=== PATIENT | male | born 1950 | race Caucasian/White ===

== ENCOUNTER 2019-05-30 22:39 | Outpatient (CLI) | payer SELFPAY | END 2019-05-30 22:40 | disposition critical access hospital (66) | LOC: EMS 22:39 | PROVIDERS: ATTEND Surgery | DX: T24.012A Burn of unspecified degree of left thigh, initial encounter (principal); W40.1XXA Explosion of explosive gases, initial encounter; Y92.89 Other specified places as the place of occurrence of the external cause | CPT/HCPCS: A0425; A0429 ==

== ENCOUNTER 2019-05-31 00:03 | Emergency (ER) | payer SELFPAY ==
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
[2019-05-31] MEDS ORDERED: SODIUM CHLORIDE 0.9% 1,000 ML IV ONE ×2 (00:44→02:48)
[2019-05-31] MEDS ORDERED: ceFAZolin 1 GM in SODIUM CHLORIDE 0.9% MINIBAG 100 ML IV STA (00:45)
[2019-05-31] MEDS ORDERED: KETOROLAC 15 MG/ML VIAL IVP STA (00:45)
[2019-05-31] MEDS ORDERED: HYDROmorphone 2 MG/ML VIAL IVP STA (00:45)
[2019-05-31] MEDS ORDERED: FAMOTIDINE 20 MG/2 ML VIAL IVP STA (00:45)
[2019-05-31] MEDS ORDERED: LIDOCAINE JELLY 2% 5 ML TUBE TOP STA (00:48)
[2019-05-31 01:03] LABS: BASOPHILS % (AUTO) 0.4 %; EOSINOPHILS # (AUTO) 0.1 10^3/uL (0.0-0.7); LYMPHOCYTES # (AUTO) 0.8 10^3/uL (1.5-3.5); LYMPHOCYTES % (AUTO) 9.3 %; MEAN CORPUSCULAR HEMOGLOBIN 27.9 pg (27.0-31.0); MEAN CORPUSCULAR HGB CONC 32.7 g/dL (32.0-36.0); MEAN CORPUSCULAR VOLUME 85.4 fL (80.0-94.0); MONOCYTES # (AUTO) 0.8 10^3/uL (0.0-1.0); NEUTROPHILS # (AUTO) 7.2 10^3/uL (1.5-6.6); NEUTROPHILS % (AUTO) 79.7 %; PLT - PLATELET COUNT 216 10^3/uL (130-450); RED BLOOD COUNT 5.01 10^6/uL (4.70-6.10); RED CELL DISTRIBUTION WIDTH 13.2 % (12.0-15.0)
[2019-05-31 01:16] LABS: ALBUMIN 3.1 g/dL (3.2-5.5); BILIRUBIN,TOTAL 0.8 mg/dL (0.2-1.0); CREATININE 0.9 mg/dL (0.6-1.2); MAGNESIUM 2.1 mg/dL (1.7-2.8); TOTAL PROTEIN 6.2 g/dL (6.7-8.2)
[2019-05-31 01:18] LABS: HB2 TOTAL 14.4 g/dL; HEMOGLOBIN A1C 0.94 g/dL; HEMOGLOBIN A1C % 8.1 % (4.6-6.2)
[2019-05-31 10:59] VITALS: BP 122/53
[2019-05-31] MEDS ORDERED: KETOROLAC 60 MG/2 ML VIAL IM STA (11:13)
== END 2019-05-31 11:26 | disposition home or self-care (01) ==
LOC: EDUNIT# → ED 00:03
DX: T24.212A Burn of second degree of left thigh, initial encounter (principal); T24.211A Burn of second degree of right thigh, initial encounter; T21.25XA Burn of second degree of buttock, initial encounter; T21.16XA Burn of first degree of male genital region, initial encounter; T31.0 Burns involving less than 10% of body surface; W40.1XXA Explosion of explosive gases, initial encounter; Y93.89 Activity, other specified; Y92.29 Other specified public building as the place of occurrence of the external cause; E86.0 Dehydration; Z59.0 Homelessness; I10 Essential (primary) hypertension; E11.9 Type 2 diabetes mellitus without complications; F17.200 Nicotine dependence, unspecified, uncomplicated
CPT/HCPCS: 36415; 80053; 82550; 83036; 83690; 83735; 85025; 96361; 96365; 96372; 96375; 99284; 99285; J1170; J3490